=== PATIENT | female | born 1995 | race Two or more races ===

== ENCOUNTER 2025-07-27 18:00 | Emergency (ER) | payer MEDICAID, OTHER ==
[~2025-07-27] VITALS: Ht 165.1 cm; Wt 72.7 kg
[2025-07-27 18:14] VITALS: BP 135/99; PULSE 105; RESP 20; O2SAT 99
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
[2025-07-27] MEDS ORDERED: ACET500T58 PO (18:52)
[2025-07-27 18:53] VITALS: TEMP 98.5
[2025-07-27] MEDS: ACETAMINOPHEN 325 MG TAB PO ONE (18:53)
--- NOTE | 2025-07-27 19:19 | DVH ---
CLINICAL INDICATION: right humerus/right shoulder pain TECHNIQUE: 3 radiographic views of the RIGHT HUMERUS were obtained. Comparison: None FINDINGS/IMPRESSION: BONY ALIGNMENT IS NORMAL. THERE IS NO FRACTURES. NO DISLOCATION.
== END 2025-07-27 19:48 | disposition home or self-care (01) ==
LOC: EDBD 18:00 → ER 18:00
DX: S40.011A Contusion of right shoulder, initial encounter (principal); V89.2XXA Person injured in unspecified motor-vehicle accident, traffic, initial encounter; Y93.89 Activity, other specified; Y92.410 Unspecified street and highway as the place of occurrence of the external cause; Y99.8 Other external cause status
CPT/HCPCS: 73060